=== PATIENT | female | born 1955 | race Caucasian/White ===

== ENCOUNTER 2019-04-26 07:10 | Emergency (ER) | payer OTHER, BC ==
[~2019-04-26] VITALS: Ht 157.5 cm; Wt 68.0 kg
[2019-04-26] MEDS ORDERED: SYNTHROID150 MCG (07:29)
[2019-04-26] MEDS ORDERED: DIOVAN40 MG (07:29)
== END 2019-04-26 11:12 | disposition home or self-care (01) ==
LOC: ER 07:10
DX: L02.31 Cutaneous abscess of buttock (principal); B96.4 Proteus (mirabilis) (morganii) as the cause of diseases classified elsewhere

== ENCOUNTER 2019-08-28 09:45 | Emergency (ER) | payer OTHER, BC ==
[~2019-08-28] VITALS: Ht 160 cm; Wt 68.0 kg
[~2019-08-28 09:45] MED LIST: DIOVAN40 MG; SYNTHROID150 MCG
[2019-08-28] MEDS ORDERED: DIOVAN40 MG (10:15)
[2019-08-28] MEDS ORDERED: ATORVASTATIN CA10 MG (10:15)
[2019-08-28] MEDS ORDERED: ECOTRIN81 MG (10:15)
[2019-08-28] MEDS ORDERED: VITAMIN B-1100 M1 (10:15)
== END 2019-08-28 10:36 | disposition home or self-care (01) ==
LOC: ER 09:45
DX: S50.812A Abrasion of left forearm, initial encounter (principal); W55.03XA Scratched by cat, initial encounter; Y93.89 Activity, other specified; Y92.89 Other specified places as the place of occurrence of the external cause; Y99.8 Other external cause status

== ENCOUNTER 2021-03-15 10:41 | Emergency (ER) | payer OTHER, BC ==
[~2021-03-15] VITALS: Ht 157.5 cm; Wt 65.8 kg
[~2021-03-15 10:41] MED LIST changes: +ATORVASTATIN CA10 MG; +ECOTRIN81 MG; +VITAMIN B-1100 M1
[2021-03-15] MEDS ORDERED: ORPHENADRINE C100 MG PO (15:06)
[2021-03-15] MEDS ORDERED: DICLOFENAC POTA50 MG PO (15:06)
== END 2021-03-15 15:29 | disposition home or self-care (01) ==
LOC: ER 10:41
DX: M79.652 Pain in left thigh (principal); M79.605 Pain in left leg

== ENCOUNTER 2022-03-02 19:24 | Emergency (ER) | payer OTHER, BC ==
[~2022-03-02] VITALS: Ht 157.5 cm; Wt 65.8 kg
[~2022-03-02 19:24] MED LIST changes: +DICLOFENAC POTA50 MG PO; +ORPHENADRINE C100 MG PO
== END 2022-03-02 21:37 | disposition home or self-care (01) ==
LOC: ER 19:24
DX: S61.451A Open bite of right hand, initial encounter (principal); W54.0XXA Bitten by dog, initial encounter; Y93.9 Activity, unspecified; Y92.9 Unspecified place or not applicable; Z88.6 Allergy status to analgesic agent